=== PATIENT | female | born 1985 | race Caucasian/White ===

== ENCOUNTER 2019-05-05 17:26 | Emergency (ER) | payer OTHER, SELFPAY ==
[2019-05-05 17:27] VITALS: BP 117/77; PULSE 122; RESP 16; TEMP 37.5; O2SAT 98; BMI 23.6
--- NOTE | 2019-05-05 18:06 | EKG12_ITS ---
Test Reason : CP Blood Pressure : / mmHG Vent. Rate : 106 BPM Atrial Rate : 106 BPM P-R Int : 154 ms QRS Dur : 076 ms QT Int : 322 ms P-R-T Axes : 071 074 057 degrees QTc Int : 427 ms Sinus tachycardia Otherwise normal ECG Confirmed by ALEX RAMIREZ, EMMANUEL ([id number]), food expeditor BELKIS DUMONT ([id number]) on 05/10/2019 8:05:50 AM Referred By: DR. OLIVEIRA Confirmed By:EMMANUEL JOHNSON MD
[2019-05-05] MEDS: 0.9% Normal Saline 1,000 ML 1000 ML IV ×2 (18:22→19:25)
[2019-05-05] MEDS: Acetaminophen 500 MG Tablet 1000 MG PO (18:22)
[2019-05-05] MEDS: Ondansetron 4 MG/2 ML Vial IV (18:22)
[2019-05-05 18:30] LABS: Absolute Neutrophil Count 3.4 X10^3/uL (2.0-7.7); Hematocrit 39.6 % (37-47); Hemoglobin 13.3 g/dL (12.0-15.0); Lymphocyte % 11.9 % (19-41); Mean Corp Hgb Conc 33.6 g/dL (32-36); Mean Corpuscular Hgb 30.4 pg (27.0-32.0); Mean Corpuscular Volume 90.6 fL (81-99); Mean Platelet Vol. 8.6 fl (6.2-12.0); Monocyte# 0.31 X10^3/uL; Monocyte% 7.4 % (0-10); NRBC Flagged by Analyzer 0 % (0-5); Neutrophil # 3.38 X10^3/uL (2.7-7.7); Neutrophil % 80.7 % (47-70); POSITIVE DIFFERENTIAL YES; POSITIVE MORPHOLOGY YES; Platelet Count 116 K/mm3 (150-450); RBC Distribution Width CV 10.8 % (11.6-14.6); RBC Distribution Width SD 35.8 fl (35.1-43.9); Red Blood Count 4.37 M/mm3 (4.2-5.4); White Blood Count 4.2 K/mm3 (4.4-11.0)
[2019-05-05 18:32] LABS: Differential Indicated SCAN CRITERIA MET
[2019-05-05 18:41] LABS: D-Dimer Quantitative (DVT/PE) 0.38 FEU/ug/m (0.27-0.49)
[2019-05-05 18:45] LABS: Anion Gap 4 (5-15); BUN 6 mg/dL (7-18); BUN/Creat Ratio 7.7 RATIO (10-20); Calcium,Total 8.7 mg/dL (8.5-10.1); Chloride 104 mmol/L (98-107); Creatinine, Serum 0.78 mg/dL (0.55-1.02); EST Glomerular Filtration Rate 90 mL/min (>60); Est Glom Filt Rate - Afr Amer 109 mL/min (>60); Estimated Creatinine Clearance 89.41 ml/min; Glucose 110 mg/dL (74-106); Potassium 3.4 mmol/L (3.5-5.1); Sodium Level 137 mmol/L (136-145)
[2019-05-05 18:58] LABS: Anisocytosis RARE; Macrocytosis RARE; Platelet Estimate SLT DEC (ADEQ)
[2019-05-05 19:00] VITALS: TEMP 37.9
--- NOTE | 2019-05-05 19:26 | ED.VISSUMM ---
- ER Visit Summary Date of Service: 05/05/19 Chief Complaint: Dehydration History of Present Illness: The patient is a 33 F presenting from her PCP office for concern of dehydration. Patient states she has had been sick for the past several days. She has subjective fever, cough, nausea, vomiting. She has myalgias and mild headache. She has taken ibuprofen at home. She did not receive a flu shot this year. Denies other complaints. Physical Examination: Vitals are stable. Temperature 99.5, heart rate 122. Alert no acute distress. HEENT exam dry mucous membranes Neck is supple. No meningismus Lungs are clear and equal bilaterally. Heart is regular and tachycardic Abdomen is soft nontender nondistended. Extremities are unremarkable. Skin is warm and dry. No rash No focal neurologic deficit. Remainder of exam is unremarkable. Emergency Department Course and Treatment: EKG is sinus tachycardia rate of 106. She was given IV fluids, Zofran, Tylenol. CBC shows white count 4.2, platelet 116. Chemistries show potassium 3.4, glucose 110. Troponin is negative. D-dimer negative. Influenza B positive. Chest x-ray shows no acute process. Patient was given Reglan and Benadryl with improvement of her headache. On reevaluation, she is feeling improved. Repeat heart rate 90. She is advised to follow-up with her primary care physician. Advised return to ED for worsening complaints. Disposition: Discharge home Impression: Influenza This note was generated with [employer] dictation software. It may contain incorrect words, spelling, and punctuation that were not noted in review of the chart prior to signing ED Disposition - Plan for ED Patient: Instructions: INFLUENZA (Adult) Referrals: Gurpreet oLve MD [Primary Care Provider] -
--- NOTE | 2019-05-05 19:30 | RAD_ITS ---
STUDY: X-RAY CHEST REASON FOR EXAM: Female, 33 years old. patient complains of cough, fever, and headache TECHNIQUE: Single AP portable view of the chest. COMPARISON: None. FINDINGS: The lungs are clear and expanded. There is no demonstrated pleural abnormality. Normal size heart. Normal mediastinum and dylan. Normal visualized pulmonary arteries. Normal visualized aortic arch and descending thoracic aorta. Normal visualized thoracic spine. Normal visualized ribs, clavicles, and shoulders. There is no demonstrated abnormality of the visualized soft tissue structures of the upper abdomen. RAD/Chest 1 View (Portable) IMPRESSION: Normal x-ray examination of the chest. Electronically Signed: Krishna Schuler MD at 20:15 EST , Service support ,
[2019-05-05] MEDS: DiphenhydrAMINE 50 MG/ML Syringe 25 MG IV (19:51)
[2019-05-05] MEDS: Metoclopramide 10 MG/2 ML Vial 5 MG IV (19:52)
[2019-05-05 20:00] VITALS: TEMP 37.3
[2019-05-05 21:00] VITALS: BP 101/52; PULSE 92; RESP 18; TEMP 37.4; O2SAT 96
--- NOTE | 2019-05-05 21:53 | ED.DEP ---
ED Disposition - Plan for ED Patient: Instructions: INFLUENZA (Adult) Referrals: Gurpreet Love MD [Primary Care Provider] -
[2019-05-05 22:22] VITALS: BP 90/53; RESP 16; O2SAT 98
[2019-05-06 13:44] LABS: Pathologist Review Reviewed
== END 2019-05-05 22:22 | disposition home or self-care (01) ==
PROVIDERS: Emergency Provider Emergency Medicine; PCP Family Medicine
DX: J11.1 Influenza due to unidentified influenza virus with other respiratory manifestations (principal)
CPT/HCPCS: 71045; 80048; 84484; 85025; 85379; 87804; 93005; 96361; 96374; 96375; 99283; J7030; J2405

== ENCOUNTER → 2020-07-28 08:43 | Outpatient (CLI) | payer SELFPAY ==
[2020-07-29 13:13] LABS: Cancer Antigen 125 19.7 U/mL (0.0-38.1)
== END ==
PROVIDERS: PCP Family Medicine
DX: R97.1 Elevated cancer antigen 125 [CA 125] (principal)
CPT/HCPCS: 36415; 86304

== ENCOUNTER → 2020-08-02 | Outpatient (CLI) | payer OTHER, SELFPAY ==
[2020-08-06 17:10] LABS: HPV Reflexed? NOT INDICATED
== END | disposition home or self-care (01) ==
LOC: LABSPEC 11:52
PROVIDERS: PCP Family Medicine; Visit Provider Obstetrics & Gynecology
DX: Z12.4 Encounter for screening for malignant neoplasm of cervix (principal)
CPT/HCPCS: 88175; G0145

== ENCOUNTER → 2020-08-10 | Outpatient (CLI) | payer OTHER, SELFPAY | END | disposition home or self-care (01) | LOC: LABSPEC 14:34 | PROVIDERS: PCP Family Medicine | DX: Z01.812 Encounter for preprocedural laboratory examination (principal); R10.2 Pelvic and perineal pain; N80.9 Endometriosis, unspecified; N92.1 Excessive and frequent menstruation with irregular cycle | CPT/HCPCS: 87635; C9803; U0002 ==

== ENCOUNTER → 2020-12-13 06:39 | Outpatient (CLI) | payer OTHER, SELFPAY ==
[2020-12-13 07:42] LABS: Glucose 87 mg/dL (74-106)
[2020-12-13 08:48] LABS: Glucose 82 mg/dL (74-106)
[2020-12-13 09:39] LABS: Glucose 101 mg/dL (74-106)
[2020-12-13 10:39] LABS: Hemoglobin A1c 4.9 % (3.8-5.6)
[2020-12-13 10:44] LABS: Glucose 55 mg/dL (74-106)
[2020-12-13 10:49] LABS: Insulin 7.7 mU/L (2.6-37.6)
[2020-12-13 10:58] LABS: Insulin 6.7 mU/L (2.6-37.6)
[2020-12-13 11:02] LABS: Insulin 69.3 mU/L (2.6-37.6)
[2020-12-13 11:03] LABS: Insulin 73.4 mU/L (2.6-37.6)
== END ==
PROVIDERS: PCP Family Medicine
DX: E34.9 Endocrine disorder, unspecified (principal)
CPT/HCPCS: 36415; 82947; 83036; 83525

== ENCOUNTER 2021-04-23 14:48 | Outpatient (CLI) | payer OTHER, SELFPAY ==
[2021-04-23 15:48] LABS: Absolute Lymphocyte Count 1.66 X10^3/uL (0.83-4.51); Absolute Neutrophil Count 3.8 X10^3/uL (2.0-7.7); Basophil# 0.01 X10^3/uL; Basophil% 0.2 % (0-1); Eosinophil# 0.05 X10^3/uL; Eosinophils% 0.9 % (0-5); Hematocrit 32.3 % (37-47); Hemoglobin 11.2 g/dL (12.0-15.0); Lymphocyte # 1.66 X10^3/ul (0.83-4.51); Lymphocyte % 28.2 % (19-41); Mean Corp Hgb Conc 34.7 g/dL (32-36); Mean Corpuscular Hgb 31.2 pg (27.0-32.0); Mean Platelet Vol. 8.7 fl (6.2-12.0); Monocyte# 0.34 X10^3/uL; Monocyte% 5.8 % (0-10); NRBC Flagged by Analyzer 0 % (0-5); Neutrophil % 64.6 % (47-70); Platelet Count 232 K/mm3 (150-450); RBC Distribution Width CV 11.4 % (11.6-14.6); RBC Distribution Width SD 37.4 fl (35.1-43.9); Red Blood Count 3.59 M/mm3 (4.2-5.4); White Blood Count 5.9 K/mm3 (4.4-11.0)
[2021-04-23 15:52] LABS: Color, Urine Yellow (Yellow); Glucose, Dipstick Normal (Normal); Ketone-Dipstick 5 mg/dl (Negative); Leukocyte Esterase-Dipstick 25 /ul (Negative); Nitrite-Dipstick Negative (Negative); Occult Blood-Urine Negative /ul (Negative); Protein-Dipstick 15 mg/dl (Negative); Specific Gravity, Urine 1.015 (1.002-1.030); Urine Bilirubin Dipstick Negative (Negative); Urine Clarity Clear (Clear); Urine Urobilinogen Normal (Normal)
[2021-04-23 16:30] LABS: Thyroid Stim Hormone (TSH) 0.91 uIU/mL (0.358-3.74)
[2021-04-23 20:17] LABS: HIV - WCH Non-Reactive (Nonreactive); Hepatitis B Surface Antigen Non-Reactive (Nonreactive); Hepatitis C Antibody Non-Reactive (Nonreactive); Rubella IgG Reactive (Nonreactive); Syphilis Antibodies Non-reactive
[2021-04-26 06:11] LABS: Chlamydia By Nucleic Acid AMP Negative (Negative)
[2021-04-26 10:01] LABS: Gonococcus By Nucleic Acid AMP Negative (Negative)
== END 2021-04-23 23:59 | disposition short-term general hospital (02) ==
PROVIDERS: PCP Family Medicine; Visit Provider Obstetrics & Gynecology
DX: Z34.82 Encounter for supervision of other normal pregnancy, second trimester (principal)
CPT/HCPCS: 36415; 81002; 84443; 85025; 86703; 86762; 86780; 86803; 87086; 87088; 87340; 87491; 87591

== ENCOUNTER → 2021-08-21 | Outpatient (CLI) | payer OTHER, SELFPAY ==
[2021-08-21 12:18] LABS: Hematocrit 30.9 % (37-47); Hemoglobin 10.6 g/dL (12.0-15.0); Mean Corp Hgb Conc 34.3 g/dL (32-36); Mean Corpuscular Hgb 33.3 pg (27.0-32.0); Mean Corpuscular Volume 97.2 fL (81-99); Mean Platelet Vol. 9.1 fl (6.2-12.0); Platelet Count 226 K/mm3 (150-450); RBC Distribution Width CV 11.7 % (11.6-14.6); RBC Distribution Width SD 40.6 fl (35.1-43.9); Red Blood Count 3.18 M/mm3 (4.2-5.4); White Blood Count 5.7 K/mm3 (4.4-11.0)
[2021-08-21 12:25] LABS: Glucose Challenge Gest 1H 50g 76 mg/dL (70-140)
== END | disposition home or self-care (01) ==
PROVIDERS: PCP Family Medicine; Visit Provider Obstetrics & Gynecology
DX: Z34.83 Encounter for supervision of other normal pregnancy, third trimester (principal)
CPT/HCPCS: 36415; 82950; 85027

== ENCOUNTER → 2021-09-24 | Outpatient (CLI) | payer OTHER, SELFPAY | END | disposition home or self-care (01) | LOC: LABSPEC 11:08 | PROVIDERS: PCP Family Medicine; Visit Provider Obstetrics & Gynecology | DX: Z36.85 Encounter for antenatal screening for Streptococcus B (principal) | CPT/HCPCS: 87077; 87081; 87186 ==

== ENCOUNTER 2021-10-28 04:15 | Inpatient (IN) | payer SELFPAY, OTHER ==
[2021-10-28] VITALS (31 sets, daily range): BP systolic 82–139; BP diastolic 59–83; PULSE 56–101; RESP 16; TEMP 36.2–37.2; O2SAT 96–99; BMI 28.3
[2021-10-28 04:13] LABS: ROM Internal Control Test YES-OK TO RESULT pt. (Internal QC)
[2021-10-28 04:14] LABS: ROM Patient Test POSITIVE (Negative)
[2021-10-28] MEDS: Lactated Ringers 1,000 ML 50 ML IV (04:50)
[2021-10-28 05:40] LABS: Absolute Lymphocyte Count 1.67 X10^3/uL (0.83-4.51); Absolute Neutrophil Count 4.5 X10^3/uL (2.0-7.7); Basophil# 0.02 X10^3/uL; Basophil% 0.3 % (0-1); Eosinophil# 0.03 X10^3/uL; Eosinophils% 0.4 % (0-5); Hematocrit 34.1 % (37-47); Hemoglobin 11.8 g/dL (12.0-15.0); Lymphocyte # 1.67 X10^3/ul (0.83-4.51); Lymphocyte % 24.6 % (19-41); Mean Corp Hgb Conc 34.6 g/dL (32-36); Mean Corpuscular Hgb 32.9 pg (27.0-32.0); Mean Platelet Vol. 9.7 fl (6.2-12.0); Monocyte# 0.49 X10^3/uL; Monocyte% 7.2 % (0-10); NRBC Flagged by Analyzer 0 % (0-5); Neutrophil # 4.53 X10^3/uL (2.7-7.7); Neutrophil % 66.9 % (47-70); Platelet Count 207 K/mm3 (150-450); RBC Distribution Width CV 11.8 % (11.6-14.6); RBC Distribution Width SD 40.5 fl (35.1-43.9); Red Blood Count 3.59 M/mm3 (4.2-5.4); White Blood Count 6.8 K/mm3 (4.4-11.0)
[2021-10-28] MEDS: 0.9% Saline Lock 10 ML Syringe IV (06:08)
--- NOTE | 2021-10-28 06:57 | PCM.HP.BLA ---
History and Physical Date of Admission: 10/28/21 Chief complaint: Leakage of fluid History present illness: 35-year-old G2, P1 at 40 weeks and 6 days with JEREMIAH 10/22/2021 arrives with leakage of clear fluid. Denies headache, visual changes, chest pain, shortness of breath, nausea vomit, right upper quadrant pain. Patient states good movement. Obstetric history: G1: 40-week male 01/2012 G2: Current Past medical history: None Medications: vitamin Past surgical history: Cystectomy, laparoscopy for endometriosis x2 Allergies: Benadryl, morphine Family history: Denies history of DVT or PE Social history: Denies smoking, alcohol use, drug use Review of systems: Besides above pertinent positives a full review of systems was performed and found to be negative Physical exam: Vital signs: Blood pressure 121/76 pulse 82 General: Normal-appearing no acute distress none HEENT: Normocephalic/atraumatic no cervical lymphadenopathy Cardiac/respiratory: No use of accessory muscles, nonlabored breathing Abdomen: Soft, nontender, gravid Extremities: No peripheral edema normal peripheral pulses Psych: Normal affect normal demeanor nonpressured speech Labs: White blood cell count 6.8 hemoglobin 11.8 hematocrit 34.1% platelets 207. Blood type a positive antibody negative. ROM positive Assessment and plan: 35-year-old G2, P1 at 40 weeks and 6 days arrives with SROM Admit labor and delivery CEFM GBS positive: For penicillin Routine orders Anesthesia to see
[2021-10-28] MEDS: Oxytocin 30 units/NS 500 ml 30 UNITS/500 ML IV.SOLN IV (08:49)
[2021-10-28] MEDS: Penicillin G 3,000,000 Units 50 ML 100 UNITS IV (09:22)
--- NOTE | 2021-10-28 13:36 | NURSING ---
Patient would like to decline the 3rd dose of IV Penicillin due to vein irritation. Dr. Marquez notified and said that the baby will not need extended monitoring as patient has been treated with two doses. Patient will likely deliver within the next few hours.
[2021-10-28] MEDS: Oxytocin 30 units/NS 500 ml 30 UNITS/500 ML IV.SOLN 334 UNITS IV (16:25)
[2021-10-28] MEDS: Methylergonovine 0.2 MG/ML Ampul IM (16:30)
--- NOTE | 2021-10-28 16:43 | OP.PCM_ITS ---
Vaginal Delivery Findings Description of Procedure: Normal spontaneous vaginal delivery of a viable female infant, vertex LUCIAN. Head and shoulders delivered with ease. Cord cut and clamped. Baby handed off to patient. Placenta delivered via cord traction and fundal massage. Second- degree midline perineal laceration noted and repaired in typical fashion. Short second stage, prophylactic Methergine IM given. EBL 300 cc Apgars 8/10
[2021-10-28] MEDS: Dibucaine 30 GM Tube 1 APPLIC TOPICAL (17:20)
[2021-10-28] MEDS: Acetaminophen 500 MG Tablet 1000 MG PO (17:21)
[2021-10-28] MEDS: Benzocaine/Lanolin/Aloe Vera 1 SPRAY EACH TOPICAL (17:21)
[2021-10-28] MEDS: Ibuprofen 600 MG Tablet PO (23:29)
[2021-10-29] MEDS: Acetaminophen 500 MG Tablet 1000 MG PO (03:23)
[2021-10-29 03:25] VITALS: BP 98/52; PULSE 83; RESP 16; TEMP 36.4; O2SAT 95
[2021-10-29] MEDS: Senna/Docusate Sodium 1 Tablet PO (06:47)
[2021-10-29 08:30] VITALS: BP 108/64; PULSE 89; RESP 16; TEMP 36.5; O2SAT 97
--- NOTE | 2021-10-29 09:38 | PCM.PN.OB ---
Subjective Subjective No complaints. Doing well. Nursing is going well. Denies heavy lochia or painfulness. Objective Data Objective Data Vital Signs: Vital Signs Temp Pulse Resp BP Pulse Ox O2 Del Method 97.7 F L 89 16 108/64 97 Room Air 10/29/21 08:30 10/29/21 08:30 10/29/21 08:30 10/29/21 08:30 10/29/21 08:30 10/29/21 08:30 Oxygen Delivery Method Room Air Weight: 72.575 kg Body Mass Index (BMI) 28.3 Intake & Output: Intake and Output for Last 24 Hours 10/27/21 10/28/21 10/29/21 23:59 23:59 23:59 Intake Total 2056.94 / 2056.94 Output Total 1300 / 1300 Balance 756.94 / 756.94 Lab / Micro Data Result Diagrams: 10/28/21 04:50 Micro: Microbiology 10/28/21 04:50 Nasal Secretion SARS-CoV-2 Antigen (Rapid) - Final Physical Exam Const alert, oriented x3 and no apparent distress Resp normal respiratory effort and normal air movement Cardio regular rate, regular rhythm, S1 normal heart sound and S2 normal heart sound Uterus Palpation: uterus fundus firm and other OB fundus nontender Extremity no calf tenderness and no pedal edema Extremity Narrative: RLE varicosity nontender Neuro oriented x3 Assessment & Plan (1) (spontaneous vaginal delivery): PLAN: PPD#1 s/p doing well A positive, Rubella immune d/c home on PPD#2
--- NOTE | 2021-10-29 10:40 | DCINST_ITS ---
Discharge Instructions Diet Discharge Diet: No restrictions Activity Discharge Activity: Return to Normal Activity and May Shower May resume sexual activity in: 6 weeks Lifting Restrictions: 20lb Dressing / Incision Call your doctor if you observe: Fever of 101 or Higher, Inability to urinate, Using more than 1 pad per hour, Shortness of breath, Chest pain, Calf discomfort, Uncontrolled pain and - (Persistent or severe headache) Suture Line Care: Avoid Pulling/Pushing Follow Up Care Please Follow Up With: Sunday Damon MD When: 3 weeks for telehealth visit 6 weeks for visit Test Results: Test results from this visit will be discussed in further detail at your follow- up appointment, if applicable. Discharge Plan Admission Admit Date/Time: 10/28/21 04:15 Primary Reason for Your Visit: Vaginal delivery Attending Provider: Sunday Damon Primary Care Provider: Gurpreet Love Discharge Orders/Prescriptions Prescriptions: New ibuprofen 600 mg Tablet 600 mg PO Q8H PRN PRN (Reason: Pain Score 1-3) Qty: 30 0RF Referrals / Follow Up: Gurpreet Love MD [Primary Care Provider] -
[2021-10-29 12:00] VITALS: BP 99/54; PULSE 81; RESP 16; TEMP 36.4
[2021-10-29 16:05] VITALS: BP 101/62; PULSE 88; RESP 14; TEMP 36.4
[2021-10-29 20:23] VITALS: BP 123/73; PULSE 90; RESP 17; TEMP 36.4; O2SAT 98
[2021-10-29] MEDS: Ibuprofen 600 MG Tablet PO (22:06)
--- NOTE | 2021-10-30 00:47 | NURSING ---
report given to Tia RN she assumes pt and care at this time
[2021-10-30 01:20] VITALS: BP 111/69; PULSE 97; RESP 16; TEMP 36.2; O2SAT 97
[2021-10-30 08:00] VITALS: BP 112/63; PULSE 76; RESP 16; TEMP 36.2
--- NOTE | 2021-10-30 10:01 | PCM.PN.OB ---
Subjective Subjective Patient without complaints. Breast-feeding going well. Ready to go home. Objective Data Objective Data Vital Signs: Vital Signs Temp Pulse Resp BP Pulse Ox O2 Del Method 97.1 F L 76 16 112/63 97 Room Air 10/30/21 08:00 10/30/21 08:00 10/30/21 08:00 10/30/21 08:00 10/30/21 01:20 10/30/21 08:00 Oxygen Delivery Method Room Air Weight: 160 lb Body Mass Index (BMI) 28.3 Intake & Output: Intake and Output for Last 24 Hours 10/28/21 10/29/21 10/30/21 23:59 23:59 23:59 Intake Total 2056.94 / 2056.94 Output Total 1300 / 1300 Balance 756.94 / 756.94 Lab / Micro Data Result Diagrams: 10/28/21 04:50 Micro: Microbiology 10/28/21 04:50 Nasal Secretion SARS-CoV-2 Antigen (Rapid) - Final Assessment & Plan (1) (spontaneous vaginal delivery): PLAN: Doing well day #2 status post routine spontaneous vaginal delivery. Will discharge to home with routine instructions.
--- NOTE | 2021-10-30 10:03 | DCINST_ITS ---
Discharge Instructions Diet Discharge Diet: No restrictions Activity Discharge Activity: May Drive (In 1 to 2 days if not taking narcotic pain medication), May Shower and May Take a Tub Bath May resume sexual activity in: 6 weeks Additional Activity Instructions:: Nothing in the vagina for 4-6 weeks. You may return to work/school in 6 weeks. Dressing / Incision Call your doctor if you observe: Fever of 101 or Higher, Inability to urinate, Using more than 1 pad per hour, Shortness of breath, Chest pain, Calf discomfort, Uncontrolled pain and - (Persistent or severe headache) Suture Line Care: Avoid Pulling/Pushing Follow Up Care Please Follow Up With: Sunday Damon MD When: Call [phone] to make an appointment with your doctor in 6 weeks. Test Results: Test results from this visit will be discussed in further detail at your follow- up appointment, if applicable. Discharge Plan Admission Admit Date/Time: 10/28/21 04:15 Primary Reason for Your Visit: Vaginal delivery Attending Provider: Sunday Damon Primary Care Provider: Gurpreet Love Discharge Orders/Prescriptions Prescriptions: New ibuprofen 600 mg Tablet 600 mg PO Q8H PRN PRN (Reason: Pain Score 1-3) Qty: 30 0RF Referrals / Follow Up: Gurpreet Love MD [Primary Care Provider] - Disposition Disposition (needs filled in before D/C Order can be placed): Home, Self Care
--- NOTE | 2021-10-30 10:25 | NURSING ---
Mother to call and schedule folllow up appointment with [facility] in 6 weeks.
== END 2021-10-30 10:32 | disposition home or self-care (01) | DRG 807 ==
LOC: WPOUT 04:16 → WP 04:16
PROVIDERS: Admitting Provider Obstetrics & Gynecology; PCP Family Medicine; Visit Provider Obstetrics & Gynecology
DX: O42.92 Full-term premature rupture of membranes, unspecified as to length of time between rupture and onset of labor (principal); Z37.0 Single live birth; O62.3 Precipitate labor; O70.1 Second degree perineal laceration during delivery; Z3A.40 40 weeks gestation of pregnancy; O99.824 Streptococcus B carrier state complicating childbirth
CPT/HCPCS: 59025; 59050; 84112; 85025; 86850; 86900; 86901; 87426; 99218; J7120; A4216; G0378